=== PATIENT | male | born 1975 | race Caucasian/White ===

== ENCOUNTER 2017-11-11 11:28 | Emergency (ER) | payer SELFPAY ==
[2017-11-11] MEDS ORDERED: Sodium Chloride 0.9% 10 ML Syringe FLUSH PRN (12:10)
[2017-11-11] MEDS ORDERED: Sodium Chloride 0.9% 1,000 ML IV SCH (12:15)
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
--- NOTE | 2017-11-11 12:39 | CT ---
Head CT Technique: Multiple axial sections through the brain were obtained. Intravenous contrast was not utilized. Comparison: No previous intracranial imaging. Findings: Ventricles along with basal cisterns and sulci over the convexities are within normal limits for the patient's age. Several low-density areas are seen within left basal ganglia most likely due to prominent perivascular spaces. No abnormal parenchymal densities are seen. No evidence of intracranial hemorrhage. No midline shift or mass effect is seen. Bone window settings were reviewed which shows no acute calvarial abnormality. Visualized sinuses are clear. There is slight defect within the medial left orbital wall suspicious for old fracture. Impression: 1. Findings suspicious for old fracture involving the medial left orbital wall. 2. Other portions of the noncontrast head CT appear within normal limits. Diagnostic code #2
--- NOTE | 2017-11-12 07:18 | CR ---
Lumbar spine: AP, lateral and coned-down lateral views centered to the lumbosacral junction were obtained. Comparison: No previous study. Vertebral body heights and disc spaces are maintained. Mild scattered endplate osteophytes are seen. Pedicles as well as transverse and spinous processes are intact. No subluxation or fracture is seen. Impression: 1. Minimal scattered endplate osteophytes. Three-view lumbar spine study is otherwise unremarkable. Diagnostic code #2
== END 2017-11-11 15:10 | disposition home or self-care (01) ==
LOC: JD.ED 11:28
DX: G44.209 Tension-type headache, unspecified, not intractable (principal); M54.5 Low back pain; F17.210 Nicotine dependence, cigarettes, uncomplicated
CPT/HCPCS: 36415; 70450; 72100; 80053; 80306; 81001; 84443; 84484; 85025; 85610; 85652; 85730; 86140; 93005; 96360; 96361; 99285; G0480; J7040; J7050; 99283

== ENCOUNTER 2018-05-27 14:47 | Emergency (ER) | payer OTHER ==
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
--- NOTE | 2018-05-30 07:29 | CR ---
Left elbow: Four views of the left elbow were obtained. Comparison: No previous study. Incidental supracondylar process is seen. Joint spaces within the elbow are preserved. No joint effusion is seen. No fracture or other bony abnormality is seen. Impression: 1. Incidental supracondylar process. 2. No additional abnormality is appreciated on left elbow study. Diagnostic code #2
== END 2018-05-27 16:24 | disposition home or self-care (01) ==
LOC: JD.ED 14:47
DX: S50.02XA Contusion of left elbow, initial encounter (principal); M77.9 Enthesopathy, unspecified; F17.210 Nicotine dependence, cigarettes, uncomplicated; V89.2XXA Person injured in unspecified motor-vehicle accident, traffic, initial encounter
CPT/HCPCS: 73080-26-LT; 73080-LT; 99283

== ENCOUNTER 2018-05-29 13:27 | Emergency (ER) | payer OTHER ==
[2018-05-29] MEDS ORDERED: Cyclobenzaprine 10 MG Tab PO ONE (14:30)
[2018-05-29] MEDS ORDERED: Ketorolac 60 MG/2 ML SDV IM ONE (14:30)
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
--- NOTE | 2018-05-30 08:29 | CR ---
Chest and right ribs: Frontal view of the chest is obtained as well as three views of the right ribs. Comparison: Prior chest x-ray of 05/26/18. Heart size and mediastinum are normal. Lungs are clear. Bony structures show no discrete right-sided rib abnormality. Impression: 1. Nothing acute is seen on frontal chest x-ray. No discrete right-sided rib abnormality is identified. Diagnostic code #1
== END 2018-05-29 15:47 | disposition home or self-care (01) ==
LOC: JD.ED 13:27
DX: S20.211A Contusion of right front wall of thorax, initial encounter (principal); F17.210 Nicotine dependence, cigarettes, uncomplicated; V43.51XA Car driver injured in collision with sport utility vehicle in traffic accident, initial encounter
CPT/HCPCS: 71101; 96372; 99283; A9270; J1885

== ENCOUNTER 2023-10-28 21:54 | Emergency (ER) | payer SELFPAY ==
[2023-10-28 22:43] LABS: BASOPHILS PERCENT AUTO 0.4 % (0.0-1.0); EOSINOPHILS ABSOLUTE AUTO 0.1 K/mm3 (0.0-0.4); EOSINOPHILS PERCENT AUTO 0.8 % (0.0-6.0); HEMATOCRIT 43.5 % (42.0-52.0); HEMOGLOBIN 14.8 gm/dl (14.0-18.0); IMMATURE GRAN ABSOLUTE AUTO 0.02 K/mm3 (0.00-0.05); IMMATURE GRAN PERCENT AUTO 0.2 % (0.0-0.4); LYMPHOCYTES ABSOLUTE AUTO 1.8 K/mm3 (1.0-4.8); LYMPHOCYTES PERCENT AUTO 19.7 % (24.0-44.0); MEAN CORPUSCULAR VOLUME 97.1 fl (83.0-99.0); MEAN PLATELET VOLUME 9.5 fl (9.4-12.4); MONOCYTES ABSOLUTE AUTO 0.7 K/mm3 (0.0-0.8); MONOCYTES PERCENT AUTO 7.4 % (0.0-8.0); NEUTROPHILS ABSOLUTE AUTO 6.5 K/mm3 (1.8-7.7); NEUTROPHILS PERCENT AUTO 71.5 % (41.0-71.0); PLATELET COUNT,PLT 159 K/mm3 (150-400); RED BLOOD CELL COUNT 4.48 M/mm3 (4.52-5.90); WHITE BLOOD CELL COUNT,WBC 9.08 K/mm3 (3.9-11.3)
[2023-10-28] MEDS ORDERED: Iopamidol 612 MG/ML 100 ML Bottle IVPUSH ONE (22:47)
[2023-10-28 23:05] LABS: A/G RATIO 1.1 (1-2); ALBUMIN 3.9 g/dl (3.4-5.0); ANION GAP 13.6 (5-15); BILIRUBIN TOTAL 0.6 mg/dL (0.2-1.0); BUN/CREATININE RATIO 10.8 (14-18); CALCIUM 8.9 mg/dL (8.5-10.1); CREATININE 1.2 mg/dL (0.7-1.3); EST CRCL DRUG DOSING (CG) 71.91 mL/min; POTASSIUM,K 3.6 mEq/L (3.5-5.1); PROTEIN TOTAL,TP 7.4 g/dl (6.4-8.2)
[2023-10-29] MEDS ORDERED: Sodium Chloride 0.9% 1,000 ML ONE (04:42)
== END 2023-10-29 01:04 | disposition home or self-care (01) ==
LOC: MERGE 21:54 → JD.ED 21:54
DX: L03.115 Cellulitis of right lower limb (principal)
CPT/HCPCS: 36415; 73701; 80053; 85025; 99284; Q9967

== ENCOUNTER 2024-07-30 09:59 | Emergency (ER) | payer BC ==
[2024-07-30] MEDS: Ketorolac 60 MG/2 ML SDV IM ONE (13:14)
== END 2024-07-30 13:50 | disposition home or self-care (01) ==
LOC: JD.ED 09:59
DX: M54.41 Lumbago with sciatica, right side (principal); F17.210 Nicotine dependence, cigarettes, uncomplicated; Z79.899 Other long term (current) drug therapy
CPT/HCPCS: 96372; 99283; J1885